=== PATIENT | female | born 1970 | race Caucasian/White ===

== ENCOUNTER 2022-06-05 18:04 | Emergency (ER) | payer OTHER, SELFPAY ==
--- NOTE | 2022-06-05 18:06 | ED.URI ---
HPI - URI/Sore Throat General Chief Complaint: Upper Respiratory Infection Stated Complaint: uri Time Seen by Provider: 06/05/22 18:50 Source: patient and RN notes reviewed Mode of arrival: ambulatory Limitations: no limitations History of Present Illness HPI Narrative: 51-year-old female presents concern for 3-week history of cough. Reports she has felt chest congestion today with worsening cough. She reports rhinorrhea for 3 weeks. She denies shortness of breath. Reports she has been trying [id number] multisymptom cold medicines without relief. She denies fever, body aches, chills, sweats. Reports history of bronchitis. MD elicited complaint: cough and rhinorrhea Related Data Home Medications Medication Instructions Recorded Confirmed dapagliflozin 10 mg tablet mg 06/05/22 (Farxiga) hydroxyzine pamoate 25 mg capsule mg 06/05/22 metformin 500 mg tablet mg 06/05/22 rosuvastatin 10 mg tablet mg 06/05/22 Allergies Allergy/AdvReac Type Severity Reaction Status Date / Time No Known Allergies Allergy Mild Unverified 03/03/11 12:48 Review of Systems Review of Systems: CONSTITUTIONAL: Denies malaise, chills, sweats, or fever. EYES: Denies visual changes, redness, or discharge. ENT: Reports rhinorrhea. Denies congestion, sinus pain, otalgia and sore throat. CARDIOVASCULAR: Denies chest pain, palpitations, or edema. RESPIRATORY: Reports cough and chest congestion Denies dyspnea. GASTROINTESTINAL: Denies abdominal pain, nausea, vomiting, diarrhea SKIN: Denies rash or itching. MUSCULOSKELETAL: Denies myalgia. NEUROLOGIC: Denies headache. All systems reviewed & are unremarkable except as noted in HPI and below PMFSH Comments At time of signature, agree with nursing past medical, surgical, social and family history. There is no relevant family history pertinent to the presenting complaint Exam Narrative: GENERAL: Well-appearing, well-nourished, and in no acute distress. HEAD: Normocephalic EYES: PERRLA, conjunctivae clear ENT: Nares clear, clear discharge. Mucous membranes moist. TM pearly gong with dull light reflex bilaterally; no tragal tenderness. Oropharynx not erythematous without lesions. Tonsils not enlarged and without exudate, no drooling, no hoarseness, no trismus, uvula midline. NECK: Supple. No lymphadenopathy CHEST: Clear to auscultation, breath sounds equal. No wheezing, rhonchi, rales, or stridor. No respiratory distress, speaks in full sentences. Cough noted HEART: Regular rate and rhythm. No murmur heard. SKIN: Warm, dry, no rash. NEURO: Alert and oriented x3. PSYCH: Normal mood and affect Course Course Emergency Course: Patient is aware of diagnosis, understands and agrees to treatment plan. Anticipatory guidance given. Patient agrees to follow-up as directed and is aware of reasons to seek care at the emergency department. Portions of this record may have been created with voice recognition software Level of Care: Express Care Visit Vital Signs Vital signs: Vital Signs Temperature 98.2 F 06/05/22 18:33 Pulse Rate 86 06/05/22 18:33 Respiratory Rate 18 06/05/22 18:33 Blood Pressure 160/77 H 06/05/22 18:33 Pulse Oximetry 100 06/05/22 18:33 Oxygen Delivery Room Air 06/05/22 18:33 Temperature 98.2 F 06/05/22 18:33 Pulse Rate 86 06/05/22 18:33 Respiratory Rate 18 06/05/22 18:33 Blood Pressure 160/77 H 06/05/22 18:33 Pulse Oximetry 100 06/05/22 18:33 Oxygen Delivery Room Air 06/05/22 18:33 Reviewed. MDM - URI/Sore Throat MDM Narrative Medical decision making narrative: Differential diagnosis considered: Nathan virus, strep pharyngitis, allergic rhinitis, upper respiratory tract infection, sinusitis, rhinosinusitis, nasopharyngitis. viral pharyngitis, otitis media, otitis externa, pneumonia, bronchitis, viral cough syndrome, viral syndrome, and influenza. Exam findings show no acute concerns or changes; patient is non-toxic appearing and
[2022-06-05 18:33] VITALS: BP 160/77; PULSE 86; RESP 18; TEMP 36.8; O2SAT 100
== END 2022-06-05 19:08 | disposition home or self-care (01) ==
PROVIDERS: Emergency Provider Nurse Practitioner
DX: J32.9 Chronic sinusitis, unspecified (principal); J40 Bronchitis, not specified as acute or chronic; E78.00 Pure hypercholesterolemia, unspecified; E11.9 Type 2 diabetes mellitus without complications
CPT/HCPCS: 99213; G0463

== ENCOUNTER 2022-07-25 17:06 | Emergency (ER) | payer OTHER, SELFPAY ==
[2022-07-25 17:32] VITALS: BP 154/85; PULSE 91; RESP 16; TEMP 36.2; O2SAT 99
--- NOTE | 2022-07-25 17:41 | ED.FEMALEGU ---
HPI - Female Genitourinary General Chief complaint: Urogenital-Female Stated complaint: uti Time Seen by Provider: 07/25/22 17:41 Source: patient and RN notes reviewed Mode of arrival: ambulatory Limitations: no limitations History of Present Illness HPI Narrative: 52-year-old female presents concern for dysuria, suprapubic pressure, chills, sweats, general malaise. She reports symptoms started 1-3 days ago, with just general malaise, it worsened today. She denies back pain, abdominal pain, nausea, vomiting. MD elicited complaint: UTI Related Data Home Medications Medication Instructions Recorded Confirmed dapagliflozin 10 mg tablet mg 06/05/22 (Farxiga) metformin 500 mg tablet mg 06/05/22 rosuvastatin 10 mg tablet mg 06/05/22 Allergies Allergy/AdvReac Type Severity Reaction Status Date / Time No Known Allergies Allergy Mild Verified 07/25/22 17:36 Review of Systems Review of Systems: CONSTITUTIONAL: Reports malaise, chills, sweats. Denies fever. CARDIOVASCULAR: Denies chest pain, palpitations, or edema. RESPIRATORY: Denies cough or dyspnea. GASTROINTESTINAL: Denies abdominal pain, nausea, vomiting, diarrhea GENITOURINARY: Reports dysuria, frequency, urgency, suprapubic pressure. Denies flank pain or hematuria. SKIN: Denies rash or itching. MUSCULOSKELETAL: Denies back pain or myalgia. All systems reviewed & are unremarkable except as noted in HPI and below PMFSH Comments At time of signature, agree with nursing past medical, surgical, social and family history. There is no relevant family history pertinent to the presenting complaint Exam Narrative: GENERAL: Well-appearing, well-nourished, and in no acute distress. HEAD: Normocephalic. EYES: PERRLA, conjunctivae clear. NECK: Supple. No lymphadenopathy CHEST: Clear to auscultation. No respiratory distress. HEART: Regular rate and rhythm. ABDOMEN: Soft, nontender upon palpation, nondistended, normal active bowel sounds, no palpable or pulsatile masses, no guarding. No CVA tenderness SKIN: Warm, dry, no rash. NEURO: Alert and oriented x3. PSYCH: Normal mood and affect Course Course Emergency Course: Patient is aware of diagnosis, understands and agrees to treatment plan. Anticipatory guidance given. Patient agrees to follow-up as directed and is aware of reasons to seek care at the emergency department. Portions of this record may have been created with voice recognition software Level of Care: Express Care Visit Vital Signs Vital signs: Vital Signs Temperature 97.2 F L 07/25/22 17:32 Pulse Rate 91 07/25/22 17:32 Respiratory Rate 16 07/25/22 17:32 Blood Pressure 154/85 H 07/25/22 17:32 Pulse Oximetry 99 07/25/22 17:32 Oxygen Delivery Room Air 07/25/22 17:32 Temperature 97.2 F L 07/25/22 17:32 Pulse Rate 91 07/25/22 17:32 Respiratory Rate 16 07/25/22 17:32 Blood Pressure 154/85 H 07/25/22 17:32 Pulse Oximetry 99 07/25/22 17:32 Oxygen Delivery Room Air 07/25/22 17:32 Reviewed. MDM - Female Genitourinary MDM Narrative Medical decision making narrative: Exam findings and UA show no acute concerns or changes; patient is non-toxic appearing and is in no distress. Patient is appropriate for outpatient treatment and follow-up. Differential Diagnosis Differential diagnosis: Likely urinary tract infection and cystitis Lab Data Labs: Urine Glucose 3+ Reference Range: Negative Urine Bilirubin 1+ Reference Range: Negative Urine Ketone 1+ Reference Range: Negative Urine Specific [place] 1.015 Reference Range:1.001-1.035 Urine Blood 3+ *
== END 2022-07-25 17:50 | disposition home or self-care (01) ==
PROVIDERS: Emergency Provider Nurse Practitioner; PCP Nurse Practitioner Family
DX: N39.0 Urinary tract infection, site not specified (principal); E78.00 Pure hypercholesterolemia, unspecified; E11.9 Type 2 diabetes mellitus without complications
CPT/HCPCS: 81003; 87086; 87088; 87147; 99213; G0463